=== PATIENT | male | born 1990 | race Caucasian/White ===

== ENCOUNTER 2017-12-22 15:01 | Emergency (ER) | payer SELFPAY ==
[2017-12-22 15:02] VITALS: BP 129/87; PULSE 99; RESP 18; TEMP 36.8; O2SAT 96; BMI 24.6
[2017-12-22 15:49] LABS: Absolute Lymphocyte Count 1.87 X10^3/ul (0.83-4.51); Absolute Neutrophil Count 9.1 X10^3/uL (2.0-7.7); Basophil# 0.06 X10^3/uL; Basophil% 0.5 % (0-1); Eosinophil# 0.18 X10^3/uL; Eosinophils% 1.5 % (0-5); Hematocrit 47.4 % (40-54); Hemoglobin 17.1 g/dl (13.0-16.5); Lymphocyte # 1.87 X10^3/ul (4.0); Lymphocyte % 15.3 % (19-41); Mean Corp Hgb Conc 36.1 g/gl (32-36); Mean Corpuscular Hgb 33.7 pg (27.0-32.0); Mean Corpuscular Volume 93.5 fL (80-94); Mean Platelet Vol. 9.9 fl (6.2-12.0); Monocyte# 1.04 X10^3/uL; Monocyte% 8.5 % (0-10); Neutrophil # 9.05 X10^3/uL (2.7-7.7); Platelet Count 231 K/mm3 (150-450); RBC Distribution Width CV 12.1 % (11.6-14.6); Red Blood Count 5.07 M/mm3 (4.6-6.2); White Blood Count 12.2 K/mm3 (4.4-11.0)
[2017-12-22 15:52] LABS: POSITIVE COUNT NO; POSITIVE DIFFERENTIAL NO; POSITIVE MORPHOLOGY NO
--- NOTE | 2017-12-22 16:00 | EKG12_ITS ---
Test Reason : MENTAL HEALTH Blood Pressure : / mmHG Vent. Rate : 088 BPM Atrial Rate : 088 BPM P-R Int : 154 ms QRS Dur : 096 ms QT Int : 382 ms P-R-T Axes : 081 081 070 degrees QTc Int : 462 ms Normal sinus rhythm Normal ECG Confirmed by JOAN LEACH, REAGAN ([id number]), manager editorial CLARA QIU ([id number] on 12/24/2017 2:47:40 PM Referred By: RUTH Confirmed By:REAGAN FRANCO MD
[2017-12-22 16:02] LABS: Anion Gap 6 (5-15); BUN 10 mg/dL (7-18); BUN/Creat Ratio 9.7 RATIO (10-20); Calcium,Total 9.3 mg/dL (8.5-10.1); Chloride 102 mmol/L (98-107); Creatinine, Serum 1.03 mg/dL (0.70-1.30); EST Glomerular Filtration Rate 91 mL/min (>60); Est Glom Filt Rate - Afr Amer 110 mL/min (>60); Estimated Creatinine Clearance 116.15 ml/min; Glucose 92 mg/dL (74-106); Potassium 3.7 mmol/L (3.5-5.1); Sodium Level 137 mmol/L (136-145)
--- NOTE | 2017-12-22 16:04 | NURSING ---
NO OLD EKGS
--- NOTE | 2017-12-22 16:15 | ED.DCSUM_ITS ---
- ER Visit Summary Date of Service: 12/22/17 Chief Complaint: Suicidal History of Present Illness: The patient is a 27 M with a history of depression. Patient states he had increasing depression and suicidal thoughts recently. Last night he attempted to hang himself. He was in therapy on medication several years ago but is otherwise been able to keep his symptoms under control until recently. Patient does admit to one prior attempt when he was standing on a bridge and thinking about jumping. He went to counseling was on medication after this incident. Physical Examination: Vital signs are unremarkable. Head and neck examination is unremarkable. He has no ligature yan or tenderness over the neck. Heart is regular rate and rhythm. No lung sounds are clear. Abdomen soft nontender. Psych exam: Patient does admit to continued suicidal thoughts and depression. He is intermittently tearful. Test Results: CBC is significant for white count 12.2 with normal differential. Hemoglobin is 17.1. Chemistry studies and LFTs are normal. Tox screen is positive for cocaine. EtOH is negative. EKG is sinus 88 with no sign of acute ischemia. Emergency Department Course and Treatment: Shell from the counseling center came and evaluate the patient. We both feel patient would be better served as an inpatient for treatment. Arrangements will be made for transfer. Treatment Plan: [] Disposition: Transfer Impression: Suicidal ideation This note was generated with [employer] dictation software. It may contain incorrect words, spelling, and punctuation that were not noted in review of the chart prior to signing ED Disposition - Plan for ED Patient: Chief Complaint: Suicidal Referrals: NOT,DEFINED [NON-STAFF] -
[2017-12-22 16:32] LABS: AST(SGOT) 22 U/L (15-37); Alanine Aminotransfer ALT/SGPT 24 U/L (16-61); Albumin, Serum 4.7 g/dL (3.2-5.0); Alkaline Phosphatase 69 U/L (45-117); Bilirubin, Direct 0.16 mg/dL (0.00-0.30); Globulin 3.5 g/dL (2.2-4.2); Protein, Total 8.2 g/dL (6.4-8.2)
[2017-12-22 16:37] LABS: Alcohol, Blood (Medical)-Serum < 3.0 mg/dL
[2017-12-22 17:37] LABS: Amphetamine Urine VISTA NEGATIVE (<1000 ng/mL); Barbiturate Urine VISTA NEGATIVE (< 200 ng/mL); Benzodiazepine Urine VISTA NEGATIVE (< 200 ng/mL); Cocaine Urine VISTA POSITIVE (< 300 ng/mL); Ecstacy Urine VISTA NEGATIVE (< 500 ng/mL); Methadone Urine VISTA NEGATIVE (< 300 ng/mL); PCP Urine VISTA NEGATIVE (< 25 ng/mL); THC Urine VISTA NEGATIVE (< 50 ng/mL); Vista UDS pH Range 6
[2017-12-22 20:13] VITALS: RESP 16; O2SAT 100
[2017-12-22 21:59] VITALS: BP 133/78; PULSE 85; RESP 16; O2SAT 98
[2017-12-22 22:00] VITALS: PULSE 85; RESP 16; O2SAT 98
[2017-12-22 22:04] VITALS: BP 133/78; PULSE 85; RESP 16; TEMP 36.9; O2SAT 98
== END 2017-12-22 22:16 | disposition short-term general hospital (02) ==
LOC: ED 16:38
PROVIDERS: Emergency Provider Emergency Medicine
DX: R45.851 Suicidal ideations (principal)
CPT/HCPCS: 36415; 80048; 80076; 80307; 80320; 85025; 93005; 99284; G0480